=== PATIENT | female | born 1950 | race Caucasian/White ===

== ENCOUNTER 2020-01-05 12:03 | Outpatient (CLI) | payer MEDICARE, OTHER ==
--- NOTE | 2020-01-05 14:33 | MRI ---
MR LUMBAR SPINE WITHOUT CONTRAST: 01/05/20 INDICATION: History of degenerative scoliosis with right hip and right leg pain. COMPARISON: None. TECHNIQUE: Multiplanar and multisequence MR images were obtained of the lumbar spine without IV contrast. FINDINGS: The visualized retroperitoneum, and paravertebral soft tissues appear within normal limits. At L5-S1, there is a broad based disc bulge with a superimposed left central to paracentral protrusio n. There is mild right and moderate left lateral recess narrowing with potential for impingement of t he traversing left S1 nerve root. The broad based bulge and facet hypertrophy at this level in additi on to the loss of disc space height induces mild to moderate left and moderate right neural foraminal narrowing. At L4-5, there is a broad based bulge with facet hypertrophy and ligamentum flavum hypertrophy induci ng mild central canal narrowing with mild to moderate bilateral neural foraminal narrowing. At L3-4, there is a broad based bulge with facet hypertrophy and ligamentum flavum hypertrophy induci ng moderate central canal narrowing with mild to moderate bilateral neural foraminal narrowing. At L2-3, there is a broad based bulge with facet hypertrophy and ligamentum flavum hypertrophy induci ng mild central canal narrowing with mild to moderate bilateral neural foraminal narrowing. At L1-2, there is a broad based bulge with facet hypertrophy inducing mild bilateral neural foramina l narrowing. There is mild central canal narrowing. At T12-L1, there is no appreciable central canal or neural foraminal narrowing. IMPRESSION: Moderate to severe lumbar spondylosis with multilevel central canal and neural foraminal narrowing as detailed above. POS: [facility]
== END 2020-01-05 12:04 | disposition home or self-care (01) ==
LOC: BICMRI 12:03
PROVIDERS: ATTEND Orthopaedic Surgery
DX: M47.26 Other spondylosis with radiculopathy, lumbar region (principal); M16.11 Unilateral primary osteoarthritis, right hip; M41.50 Other secondary scoliosis, site unspecified; M48.061 Spinal stenosis, lumbar region without neurogenic claudication; M48.07 Spinal stenosis, lumbosacral region; M47.27 Other spondylosis with radiculopathy, lumbosacral region
CPT/HCPCS: 72148

== ENCOUNTER 2022-05-28 10:15 | Outpatient (CLI) | payer MEDICARE, OTHER | END 2022-05-28 10:16 | disposition home or self-care (01) | LOC: PET 10:15 | PROVIDERS: ATTEND Internal Medicine | DX: R16.0 Hepatomegaly, not elsewhere classified (principal) | CPT/HCPCS: 78815; A9552 ==

== ENCOUNTER 2022-11-09 09:04 | Outpatient (CLI) | payer MEDICARE, OTHER | END 2022-11-09 09:05 | disposition home or self-care (01) | LOC: SCSMRI 09:04 | PROVIDERS: ATTEND Internal Medicine | DX: K76.89 Other specified diseases of liver (principal); R16.0 Hepatomegaly, not elsewhere classified; Z91.89 Other specified personal risk factors, not elsewhere classified | CPT/HCPCS: 74183; 82565 ==